=== PATIENT | female | born 1990 | race African-American/Black ===

== ENCOUNTER 2019-05-25 10:32 | Outpatient (CLI) | payer OTHER ==
--- NOTE | 2019-05-25 11:32 | ULT ---
OB ULTRASOUND: HISTORY: anatomy and cervical length. FINDINGS: A single live intrauterine gestation is seen with measurements corresponding to an estimated gestatio nal age of 19 weeks 4 days and an LOLA of 10/15/2019. The estimated weight measures 274 g or 10 oz (5th percentile on Hadlock criteria). BIOMETRY: BPD: 4.60 cm (20 weeks 0 days) HC: 16.80 cm (19 weeks 4 days) AC: 13.47 cm (19 weeks 0 days) FL: 2.97 cm (19 weeks 2 days) heart rate measures 149 beats per minute. Placenta is fundal and to the left without placenta p revia. Amniotic fluid appears to be within normal limits. The cervical length measures 3.8 cm. Three vessel cord, cord insertion, kidneys, bladder, stomach, four chambered heart, lateral maryann tricles, cerebellum, spine, lips/nose and upper and lower extremities are visualized. No definite fet al anomalies are seen. IMPRESSION: Single live intrauterine of 19 weeks' 4 days' estimated gestational age and estimated date of delivery of 10/15/2019. POS: BIBI
== END 2019-05-25 10:33 | disposition home or self-care (01) ==
LOC: BICULT 10:32
PROVIDERS: ATTEND Family Medicine
DX: Z34.02 Encounter for supervision of normal first pregnancy, second trimester (principal); Z3A.19 19 weeks gestation of pregnancy
CPT/HCPCS: 76805

== ENCOUNTER 2019-09-08 22:40 | Day surgery (SDC) | payer OTHER ==
[2019-09-09 01:00] VITALS: BMI 37.8
[2019-09-09] MEDS ORDERED: hydrALAZINE 20 MG/ML VIAL SLOW IVP PRN (01:27)
--- NOTE | 2019-09-09 06:56 | ER ---
DATE OF SERVICE: 09/09/2019 TIME OF SERVICE: Approximately 0200 hours. CHIEF COMPLAINT: Decreased movement. HISTORY OF PRESENT ILLNESS: Ms. Orona is a 29-year-old, 1, para 0, at [address] Phillips. Antepartum record not available on the unit. She reports decreased movement for 1 day. She denies leakage of fluid. She denies vaginal bleeding. HAIR SPECIALIST HISTORY: Unremarkable by report. No antepartum record available. PAST MEDICAL HISTORY: None. PAST SURGICAL HISTORY: None. ALLERGIES: DENIES. MEDICATIONS: vitamins. SOCIAL HISTORY: Denies tobacco, alcohol, or IV drug use. FAMILY HISTORY: Noncontributory. REVIEW OF SYSTEMS: Noncontributory. PHYSICAL EXAMINATION: GENERAL: Black female, in no acute distress. VITAL SIGNS: Temperature 98.2, pulse 85, respirations 18, and blood pressure 138/82. HEENT: Within normal limits. LUNGS: Clear to auscultation bilaterally. HEART: Regular rhythm. ABDOMEN: Soft and nontender. 35 cm fundal height. FHTs 140s. GENITOURINARY: Vulva lesions. Vaginal exam deferred. EXTREMITIES: Without clubbing, cyanosis, or edema. . The patient was feeling movement. Category I heart rate tracing was noted for greater than 1 hour with a reactive nonstress test. IMPRESSION: Decreased movement, now improved with reactive nonstress test 35 weeks' gestation. PLAN: ER precautions. Keep scheduled followup with Dr. Phillips. Job ID: [id number]
== END 2019-09-09 01:34 | disposition home health service (06) ==
LOC: L&D/OP 22:40
PROVIDERS: ATTEND Family Medicine
DX: O36.8130 Decreased fetal movements, third trimester, not applicable or unspecified (principal); Z3A.35 35 weeks gestation of pregnancy
CPT/HCPCS: 99282

== ENCOUNTER 2019-09-25 13:57 | Inpatient (IN) | payer OTHER ==
[2019-09-25] MEDS ORDERED: Ibuprofen 800 MG TAB PO PRN (14:08)
[2019-09-25] MEDS ORDERED: Butorphanol Tartrate 1 MG/ML VIAL SLOW IVP PRN (14:08)
[2019-09-25] MEDS ORDERED: HYDROcodone/Acetaminophen 5/325 mg Tablet PO PRN ×2 (14:08)
[2019-09-25] MEDS ORDERED: hydrALAZINE 20 MG/ML VIAL SLOW IVP PRN (14:08)
[2019-09-25] MEDS ORDERED: NS / Oxytocin 40 units/1000ml 1,000 ML IV PRN (14:08)
[2019-09-25] MEDS ORDERED: Promethazine HCl 25 MG/ML VIAL IM PRN ×2 (14:08→22:03)
[2019-09-25] MEDS ORDERED: Lidocaine 1% (PF) 30 ML VIAL SC PRN (14:08)
[2019-09-25] MEDS ORDERED: Misoprostol 100 MCG TAB VAG SCH (14:15)
[2019-09-25] MEDS ORDERED: NS w/ Oxytocin 10 units 500 ML IV SCH (14:15)
--- NOTE | 2019-09-25 14:15 | PDOC.LDHP ---
Labor and Delivery H&P Chief complaint: decreased movement HPI: 29 y/o G1 at 37w6d, patient of Dr. Phillips, presents with no movement today and some contractions. She reports the last big movement she felt was Thursday and only flutters yesterday. She denies VB, LOF or other concerns. ROS neg for HEENT, cv, pulm, gi, gu, neuro, psych, skin, musculoskeletal or constitutional symptoms other than mentioned above. OB History Details: First Current complications: none Past Medical History: None Current medications: pre- vitamins Previous surgical history: none Allergies/Adverse Reactions: Allergies Allergy/AdvReac Type Severity Reaction Status Date / Time No Known Allergies Allergy Verified 09/09/19 00:57 Social history: none - Physical Exam Vital signs reviewed and normal: yes General: NAD, resting Lungs: nonlabored breathing Abdomen: gravid Extremeties: no edema - Assessment Term IUFD No cardiac activity seen on bedside ultrasound, confirmed with color doppler. Patient counseled and appropriately grieving. - Plan Plan: admit to L&D, labor augmentation if indicated, informed consent obtained, anesthesia consult for pain management -: Dr. Phillips notified.
[2019-09-25 15:09] LABS: Hemoglobin 13.7 g/dL (12.0-16.0); Mean Corpuscular HGB CONC 32.9 g/dL (32.0-36.0); Mean Corpuscular Hemoglobin 29.4 pg (27.0-31.0); Mean Corpuscular Volume 89.4 fL (78.0-98.0); Mean Platelet Volume 10.4 fL (7.4-10.4); Platelet Count 210 thou/uL (130-400); RBC Distribution Width 13.4 % (11.5-14.5); Red Blood Cell (RBC) Count 4.65 mill/uL (4.20-5.40)
[2019-09-25 15:22] VITALS: BMI 38.9
[2019-09-25] MEDS ORDERED: Misoprostol 200 MCG TAB ONE ×2 (15:33)
[2019-09-25] MEDS: Lactated Ringer's 1,000 ML IV SCH ×2 (15:40→20:10)
[2019-09-25 15:45] LABS: HBSAg Index 0.19 S/CO (0-0.99); Hep B Surf Ag Non-Reactive S/CO (NonReactive); Syphilis Antibody Nonreactive (Nonreactive); Syphilis Antibody Index 0.03 S/CO (<1.00 Non-Reactive)
[2019-09-25] MEDS ORDERED: Misoprostol 100 MCG TAB PO SCH (16:45)
[2019-09-25] MEDS ORDERED: Fentanyl 4 mcg/Bup 0.1% Cadd 100 ML ONE (19:18)
[2019-09-25] MEDS: Terbutaline Sulfate 1 MG/ML VIAL ONE ×2 (19:37→20:58)
[2019-09-25] MEDS ORDERED: Calcium Gluc 4.6 MEQ/10 ML (100 MG/ML) IV PRN (20:46)
[2019-09-25] MEDS ORDERED: Magnesium Sulfate 20 gm/500 ml 20 GM/500 ML BAG IVPB PRN (20:46)
[2019-09-25] MEDS: Magnesium Sulfate 20 GM in Dextrose 5% in Water 460 ML IV SCH (20:59)
[2019-09-25] MEDS ORDERED: Magnesium Sulfate 20 gm/500 ml 4 GM/100 ML BAG IVPB SCH (21:00)
[2019-09-25] MEDS: Ondansetron PF 4 MG/2 ML Vial IVP PRN (21:17)
[2019-09-25 21:22] LABS: ALT (SGPT) 8 U/L (8-55); AST (SGOT) 11 U/L (5-34); Alkaline Phosphatase 249 U/L (40-110); Anion Gap 15 mmol/L (10-20); BUN (Urea Nitrogen) 6 mg/dL (7.0-18.7); Bilirubin, Total 0.3 mg/dL (0.2-1.2); Calc. Creatinine Clearance 174 mL/min (70-130); Calcium 8.8 mg/dL (7.8-10.44); Carbon Dioxide 23 mmol/L (22-29); Chloride 101 mmol/L (98-107); Estimated GFR-MDRD Greater than 90; Globulin 3.1 g/dL (2.4-3.5); Glucose 100 mg/dL (70-105); Protein, Total 6.1 g/dL (6.0-8.3); Sodium 136 mmol/L (136-145)
[2019-09-25 21:43] LABS: Amphetamine Not Detected (NotDetected); Barbiturates Screen Not Detected (NotDetected); Benzodiazepine Screen Not Detected (NotDetected); Cocaine Metabolite Screen Not Detected (NotDetected); Medtox Control Line Valid? VALID (VALID); Medtox Reader # READER 1; Methadone Not Detected (NotDetected); Methamphetamine Not Detected (NotDetected); Opiate Screen Not Detected (NotDetected); Oxycodone Screen Not Detected (NotDetected); Phencyclidine (PCP) Not Detected (NotDetected); THC/Cannabinoid Screen Not Detected (NotDetected); Tricyclic Screen Not Detected (NotDetected)
[2019-09-25 21:51] LABS: Creatinine, Urine 55.09 mg/dL (47-110)
[2019-09-25] MEDS ORDERED: Acetaminophen 325 MG TAB PO PRN (22:03)
[2019-09-25] MEDS ORDERED: Lactated Ringer's 500 ML IV PRN (22:03)
[2019-09-25] MEDS ORDERED: diphenhydrAMINE 50 MG/ML VIAL IVP PRN (22:03)
[2019-09-25] MEDS ORDERED: Naloxone HCl 0.4 mg/ml Vial IVP PRN ×2 (22:03)
[2019-09-25] MEDS ORDERED: Ondansetron PF 4 MG/2 ML Vial IVP PRN (22:03)
[2019-09-25] MEDS ORDERED: EPHEDRINE 25 MG/5 ML SYRINGE SLOW IVP PRN (22:03)
[2019-09-25] MEDS ORDERED: Communication Order-Pharmacy FS SCH (22:15)
[2019-09-25] MEDS ORDERED: Potassium Chloride 20 MEQ in Premix Bag 1 BAG IVPB SCH (23:00)
[2019-09-26] MEDS ORDERED: Misoprostol 100 MCG TAB VAG PRN (02:35)
[2019-09-26] MEDS: Lactated Ringer's 1,000 ML IV SCH (03:01)
[2019-09-26] MEDS: Fentanyl 4 mcg/Bupivacaine 0.1% Cassette 100 ML EPIDURAL SCH ×2 (03:10→10:15)
[2019-09-26] MEDS ORDERED: Fentanyl 100 MCG/2 ML VIAL ONE ×2 (03:28→08:15)
[2019-09-26] MEDS: Magnesium Sulfate 20 GM in Dextrose 5% in Water 460 ML IV SCH (05:33)
[2019-09-26] MEDS ORDERED: hydrALAZINE 20 MG/ML VIAL SLOW IVP PRN ×2 (08:10→14:12)
[2019-09-26] MEDS: Ondansetron PF 4 MG/2 ML Vial IVP PRN (08:35)
[2019-09-26] MEDS ORDERED: Fentanyl 4 mcg/Bup 0.1% Cadd 100 ML ONE (10:08)
[2019-09-26] MEDS ORDERED: Lidocaine 1% (PF) 30 ML VIAL ONE (11:01)
[2019-09-26] MEDS ORDERED: NS / Oxytocin 40 units/1000ml 1,000 ML ONE (11:01)
[2019-09-26] MEDS ORDERED: Misoprostol 200 MCG TAB ONE (11:21)
[2019-09-26] MEDS ORDERED: Benzocaine-Menthol 82.5 ML CAN TOP PRN (14:12)
[2019-09-26] MEDS ORDERED: NS / Oxytocin 40 units/1000ml 1,000 ML IV SCH (14:12)
[2019-09-26] MEDS ORDERED: Adacel (T-DAP) 0.5 ML SYRINGE IM ONE (14:12)
[2019-09-26] MEDS ORDERED: Lanolin Ointment 7 GM TUBE TOP PRN (14:12)
[2019-09-26] MEDS ORDERED: HYDROcodone/Acetaminophen 5/325 mg Tablet PO PRN ×2 (14:12)
[2019-09-26] MEDS ORDERED: diphenhydrAMINE 25 MG CAP PO PRN (14:12)
[2019-09-26] MEDS ORDERED: Ondansetron PF 4 MG/2 ML Vial IVP PRN (14:12)
[2019-09-26] MEDS ORDERED: Milk Of Magnesia 30 ML UDCUP PO PRN (14:12)
[2019-09-26] MEDS ORDERED: Zolpidem Tartrate 5 MG TAB PO PRN (14:12)
[2019-09-26] MEDS ORDERED: Bisacodyl 10 MG SUPP PR PRN (14:12)
[2019-09-26] MEDS ORDERED: NIFEdipine XL 30 MG TAB PO SCH (14:30)
[2019-09-26] MEDS: Ibuprofen 800 MG TAB PO SCH ×2 (15:04→22:30)
[2019-09-26] MEDS ORDERED: Magnesium Sulfate 20 gm/500 ml 20 GM/500 ML BAG IVPB SCH (15:15)
[2019-09-26] MEDS ORDERED: Ferrous Sulfate 325 MG TAB PO SCH (17:00)
[2019-09-26] MEDS: Docusate Calcium (SURFAK) 240 MG CAP PO SCH (21:05)
[2019-09-27] MEDS: Lactated Ringer's 1,000 ML IV SCH (01:21)
[2019-09-27 06:01] LABS: Hemoglobin 12.7 g/dL (12.0-16.0); Mean Corpuscular HGB CONC 32.8 g/dL (32.0-36.0); Mean Corpuscular Hemoglobin 29.4 pg (27.0-31.0); Mean Corpuscular Volume 89.7 fL (78.0-98.0); Mean Platelet Volume 9.9 fL (7.4-10.4); Platelet Count 181 thou/uL (130-400); RBC Distribution Width 13.4 % (11.5-14.5); Red Blood Cell (RBC) Count 4.32 mill/uL (4.20-5.40); White Blood Cell (WBC) Count 18.4 thou/uL (4.8-10.8)
[2019-09-27] MEDS: Ibuprofen 800 MG TAB PO SCH ×2 (06:17→13:49)
[2019-09-27] MEDS ORDERED: Prenatal Vitamin 1 TAB PO SCH (09:00)
[2019-09-27] MEDS ORDERED: NIFEdipine XL 30 MG TAB PO SCH (09:00)
[2019-09-27] MEDS: Docusate Calcium (SURFAK) 240 MG CAP PO SCH (10:31)
[2019-09-27 13:41] VITALS: BP 127/74; TEMP 98.2
[2019-09-29 15:13] LABS: Parvovirus B19 IgG ABS 5.3 index (0.0-0.8); Parvovirus B19 IgM ABS 0.2 index (0.0-0.8)
== END 2019-09-27 14:00 | disposition home or self-care (01) | DRG 807 ==
LOC: L&D/OP 13:57 → L&D 14:45
PROVIDERS: ADMIT Family Medicine; ATTEND Family Medicine
PROC: 10E0XZZ Delivery of Products of Conception, External Approach (ICD-10-PCS; principal; 2019-09-25)
DX: O80 Encounter for full-term uncomplicated delivery (principal); Z37.0 Single live birth; Z3A.37 37 weeks gestation of pregnancy
CPT/HCPCS: 36415; 51702; 80053; 80306; 82570; 84156; 85027; 86644; 86645; 86747; 86780; 86850; 86900; 86901; 87340; 87798; 88307; 99285; J0360; J2001; J2405; J2590; J3010; J3105; J3475; J3480; J7070

== ENCOUNTER 2020-07-22 22:14 | Emergency (ER) | payer OTHER ==
[2020-07-22 23:08] LABS: BHCG - Serum POSITIVE (NEGATIVE); Pregs Control Background? CLEAR/WHITE (CLR/WHITE); Pregs Control Bar Appear? YES (CONTROL BAR)
[2020-07-23 00:53] LABS: Bilirubin Negative (Negative); Blood, Urine Negative (Negative); Clarity Clear (Clear); Glucose, Urine (Dipstick) Normal (Negative); Ketone, Urine Trace mg/dL (Negative); Leukocyte 500 Leu/uL (Negative); Nitrite Negative (Negative); Protein, Urine (Dipstick) 30 mg/dL (Neg-Trace); Specific Gravity, Urine 1.039 (1.002-1.036)
[2020-07-23 00:56] LABS: Bacteria/HPF 1+ HPF (None Seen); RBC/HPF 0-3 HPF (0-3)
--- NOTE | 2020-07-23 08:02 | ULT ---
PRELIMINARY REPORT/[facility]/EMERGENCY AFTER HOURS PROCEDURE: EXAM: US Obstetrical, Complete <14 weeks CLINICAL HISTORY: HX: CRAMPING AT 8WKS PREG, NO BLEEDING. TECHNIQUE: Transabdominal imaging of the maternal pelvis and a <14 week gestation with image document ation. COMPARISON: None provided. FINDINGS: GESTATION: An intrauterine gestation is noted with a CRL of 2 cm corresponding to 8 weeks 5 days and demonstrating a heartbeat of 168 bpm UTERUS: Unremarkable. No myometrial mass. Measures 9.6 x 5.3 x 6.2 cm CERVIX: Closed. Unremarkable. OVARIES: Unremarkable. No mass. The LEFT side measures 2.3 x 1.7 x 1.9 cm and the RIGHT side measure s 3.3 x 2.1 x 3.0 cm demonstrating a 1.3 x 1.0 x 1.1 cm cyst FREE FLUID: No free fluid. IMPRESSION: Single viable intrauterine . No acute abnormality. ELECTRONICALLY SIGNED BY: Max Leggett MD Jul 23, 2020 1:45:15 AM PLACEMENT SPECIALIST FINAL REPORT EMERGENT AFTER HOURS PELVIC ULTRASOUND: HISTORY: Cramping at 8 weeks . No bleeding. IMPRESSION: 1. Evidence of a single intrauterine gestation. pole and yolk sac are visualized. Cardiac Doppl er demonstrates heart tones with a heart rate of 168 bpm. 2. Gestational age by measurement of the crown-rump length is 8 weeks and 5 days. 3. No subchorionic hemorrhage is visualized on this exam. 4. A 1.3 cm anechoic structure is seen in the right ovary suggesting a small cyst. Flow is demonstrat ed in each ovary. 5. No free fluid seen in the cul-de-sac. 6. Findings are in agreement with preliminary report by [facility]. Transcribed Date/Time: 07/23/2020 8:15 AM
== END 2020-07-23 02:25 | disposition home or self-care (01) ==
LOC: ERS 22:14
DX: O26.891 Other specified pregnancy related conditions, first trimester (principal); R10.30 Lower abdominal pain, unspecified; O99.331 Smoking (tobacco) complicating pregnancy, first trimester; F17.210 Nicotine dependence, cigarettes, uncomplicated; Z3A.08 8 weeks gestation of pregnancy
CPT/HCPCS: 36415; 76856; 81003; 81015; 84702; 84703; 87077; 87086; 93976